=== PATIENT | female | born 1980 | race Caucasian/White ===

== ENCOUNTER 2016-08-12 12:35 | Emergency (ER) | payer OTHER ==
[~2016-08-12] VITALS: Ht 160 cm; Wt 86.4 kg
[2016-08-12] MEDS ORDERED: ONDA4 PO (12:50)
[2016-08-12] MEDS ORDERED: ACETAMINOPHEN 325 MG TABLET PO ONE (15:15)
[2016-08-12 17:01] VITALS: BP 143/89
== END 2016-08-12 18:35 | disposition home or self-care (01) ==
LOC: EDUNIT# 12:35 → EMS 12:41
DX: S49.91XA Unspecified injury of right shoulder and upper arm, initial encounter (principal); M25.562 Pain in left knee; M25.561 Pain in right knee; F17.210 Nicotine dependence, cigarettes, uncomplicated; V49.00XA Driver injured in collision with unspecified motor vehicles in nontraffic accident, initial encounter; Y93.89 Activity, other specified; Y92.89 Other specified places as the place of occurrence of the external cause; Y99.8 Other external cause status
CPT/HCPCS: 73502; 99284